=== PATIENT | male | born 1980 | race Caucasian/White ===

== ENCOUNTER 2022-05-15 13:10 | Emergency (ER) | payer OTHER, SELFPAY ==
[2022-05-15 13:28] VITALS: BP 132/87; PULSE 53; RESP 12; TEMP 36.7; O2SAT 100
--- NOTE | 2022-05-15 14:44 | ED.URI ---
HPI - URI/Sore Throat General Chief Complaint: Upper Respiratory Infection Stated Complaint: Sore Throat Source: patient Mode of arrival: ambulatory Limitations: no limitations History of Present Illness HPI Narrative: 42-year-old male presents to [facility] with complaints of sore throat, runny nose and congestion since yesterday. Patient's daughter currently has similar symptoms. Patient has not tried taking any [id number] medications for symptoms. Patient denies shortness of breath, wheezing, nausea, vomiting diarrhea or fevers MD elicited complaint: rhinorrhea and nasal congestion Onset (ago): day(s) (1) Able to tolerate fluids by mouth: Yes Relieving factors: nothing Context: sick contacts Related Data Home Medications Medication Instructions Recorded Confirmed No Home Medications 05/15/22 05/15/22 Allergies Allergy/AdvReac Type Severity Reaction Status Date / Time No Known Allergies Allergy Verified 05/15/22 13:32 Review of Systems Constitutional: Constitutional: Denies chills, Denies fatigue, Denies fever(s) and Denies weakness ENT: Denies vertigo, Denies dizziness, Reports nasal congestion and Reports sore throat Respiratory: Respiratory: Denies cough, Denies dyspnea and Denies wheezing Gastrointestinal: Gastrointestinal: Denies diarrhea, Denies nausea and Denies vomiting Integumentary/Breasts: Skin/Breast: Denies rash Neurologic: Denies vertigo and Denies dizziness PMFSH Comments At time of signature, I agree with nursing past medical, surgical, social and family history. There is no relevant family history pertinent to the presenting complaint. Exam Const: General: healthy appearing and no acute distress Nutritional Appearance: well nourished Orientation/consciousness: patient oriented x3 Limitations: no limitations HENMT: Head: normal to inspection Ears: external ears normal and TM's normal bilaterally Face/Nose/Sinus: Normal external nose present Face and sinus: normal facial exam Mouth: Yes Normal oral and palatal mucosa present Throat: posterior oropharynx normal and uvula midline Eyes: Conjunctivae: conjunctivae normal Neck: Neck: normal visual inspection Resp: Effort & Inspection: normal respiratory effort and not labored Auscultation: clear to auscultation bilaterally, no crackles, no rales and no rhonchi Cardio: Rate: regular rate Rhythm: regular rhythm Heart sounds: no murmurs Skin: General skin exam: normal color Neuro: General: patient oriented x3 Speech: normal speech Psych: Mental Status: mental status grossly normal Affect: normal affect Attitude: cooperative Course Course Level of Care: Express Care Visit Vital Signs Vital signs: Vital Signs Temperature 36.7 C 05/15/22 13:28 Pulse Rate 53 L 05/15/22 13:28 Respiratory Rate 12 05/15/22 13:28 Blood Pressure 132/87 05/15/22 13:28 Pulse Oximetry 100 05/15/22 13:28 Oxygen Delivery Room Air 05/15/22 13:28 Temperature 36.7 C 05/15/22 13:28 Pulse Rate 53 L 05/15/22 13:28 Respiratory Rate 12 05/15/22 13:28 Blood Pressure 132/87 05/15/22 13:28 Pulse Oximetry 100 05/15/22 13:28 Oxygen Delivery Room Air 05/15/22 13:28 MDM - URI/Sore Throat MDM Narrative Medical decision making narrative: Discussed negative influenza and strep results with patient. Instructed patient to take [id number] medications as needed for symptom relief. Instructed patient to follow-up with primary care provider if symptoms do not improve Differential Diagnosis Differential diagnosis: Likely upper respiratory infection, otitis media and sinusitis Lab Data Labs: Strep Screen Presumptive Negative *(Reference Range: Negative)* Negative influenza results Critical Care Time Critical Care Time Critical Care Time: No Discharge Plan Discharge Clinical Impression: Viral infection Patient Disposition: Home, Self
== END 2022-05-15 14:50 | disposition home or self-care (01) ==
PROVIDERS: Emergency Provider Nurse Practitioner Family; PCP Family Medicine
DX: B34.9 Viral infection, unspecified (principal)
CPT/HCPCS: 87081; 87804; 87880; 99203; G0463